=== PATIENT | female | born 1940 | race Caucasian/White ===

== ENCOUNTER 2022-07-22 10:24 | Day surgery (SDC) | payer MEDICARE, MEDICAID ==
[~2022-07-22] VITALS: Ht 160 cm; Wt 72.2 kg
[2022-07-22] VITALS (8 sets, daily range): BP systolic 130–157; BP diastolic 42–81
[2022-07-22] MEDS ORDERED: normal saline 1,000 ML IV SCH (10:55)
[2022-07-22] MEDS ORDERED: diphenhydrAMINE 25mg capsule PO PRN (10:55)
[2022-07-22] MEDS ORDERED: LORazepam 0.5 MG tablet PO PRN (10:55)
[2022-07-22] MEDS ORDERED: ATOR40TA72 PO (11:00)
[2022-07-22] MEDS ORDERED: MECL-226 PO (11:00)
[2022-07-22] MEDS ORDERED: CHOL200012 PO (11:00)
[2022-07-22] MEDS ORDERED: ASPI81TA52 PO (11:00)
[2022-07-22] MEDS ORDERED: VERA300C6 PO (11:00)
[2022-07-22] MEDS ORDERED: LEFL10TA20 PO (11:00)
[2022-07-22] MEDS ORDERED: LIDOcaine 1%/PF 5ML 10 MG/ML VIAL ONE (12:21)
[2022-07-22] MEDS ORDERED: fentaNYL/PF 50MCG/1 ML 2ML syringe ONE (12:21)
[2022-07-22] MEDS ORDERED: iohexol 350MG/ML 100ml bottle IV ONE (12:21)
[2022-07-22] MEDS ORDERED: nitroGLYCERIN-Tridil 50MG/D5W 250 ML IV ONE (12:21)
[2022-07-22] MEDS ORDERED: midazolam 1 mg/ML 2ml injection ONE (12:21)
[2022-07-22] MEDS ORDERED: verapamil 2.5 mg/ml inj IV ONE (12:21)
[2022-07-22] MEDS ORDERED: heparin 1,000unit/ml 10ml vial 10 ML ONE (12:21)
[2022-07-22] MEDS ORDERED: LIDOcaine 1% 30ml preserv. free vial ONE (14:06)
[2022-07-22 14:24] LABS: ISTAT HGB ART 11.9 g/dl (12.0-16.0); ISTAT Hct ART 35 %PCV (35-48); ISTAT O2 SATURATION ARTERIAL 88 % (95-98); ISTAT SOURCE ART
--- NOTE | 2022-07-22 14:50 | NUR ---
Patient back from laborer general. Bedside report received from [facility]. Procedure site to right groin stable. No signs of bleeding or hematoma. Pedal pulse intact. Vital signs stable.
[2022-07-22] MEDS ORDERED: HYDROcodone/acetaminophen 10/325mg tab PO PRN (15:05)
[2022-07-22] MEDS ORDERED: HYDROcodone/acetaminophen 5mg/325mg tablet PO PRN (15:05)
[2022-07-23 06:27] LABS: ISTAT Hct MIX 36 %PCV (35-48); ISTAT O2 SATURATION MIX VENOUS 64 % (60-80); ISTAT SOURCE VEN
== END 2022-07-22 16:50 | disposition home or self-care (01) ==
LOC: SSTAY O 10:24
PROVIDERS: ATTEND Student in an Organized Health Care Education/Training Program
DX: I25.10 Atherosclerotic heart disease of native coronary artery without angina pectoris (principal); I35.0 Nonrheumatic aortic (valve) stenosis; I10 Essential (primary) hypertension; Z86.73 Personal history of transient ischemic attack (TIA), and cerebral infarction without residual deficits; F41.9 Anxiety disorder, unspecified; M06.9 Rheumatoid arthritis, unspecified; Z79.899 Other long term (current) drug therapy; Z98.890 Other specified postprocedural states
CPT/HCPCS: 82803; 85014; 93005; 93456; 99152; C1760; C1769; C1894; J1644; J2250; J3010; J3490; J7030; Q0163; Q9967; 99153; A4620; A5120; A6258

== ENCOUNTER 2022-09-19 10:58 | Outpatient (CLI) | payer MEDICARE, MEDICAID ==
[~2022-09-19] VITALS: Ht 160 cm; Wt 70.3 kg
[~2022-09-19 10:58] MED LIST: ASPI81TA52 PO; ATOR40TA72 PO; CHOL200012 PO; LEFL10TA20 PO; MECL-226 PO; VERA300C6 PO
[2022-09-19 11:39] LABS: BASOPHILS # (AUTO) 0.1 X10'3 (0-0.2); BASOPHILS % (AUTO) 0.7 % (0-1); EOSINOPHILS # (AUTO) 0.4 X10'3 (0-0.9); EOSINOPHILS % (AUTO) 3.5 % (0-6); HEMATOCRIT 40.1 % (35.0-45.0); HEMOGLOBIN 13.3 g/dl (12.0-16.0); LYMPHOCYTES # (AUTO) 1.2 X10'3 (1.1-4.8); LYMPHOCYTES % (AUTO) 11.3 % (21-51); MEAN CORPUSCULAR HEMOGLOBIN 26.9 PG (27.0-31.0); MEAN CORPUSCULAR HGB CONC 33.2 g/dL (33.0-36.5); MEAN CORPUSCULAR VOLUME 81.1 FL (78-98); MEAN PLATELET VOLUME 8.1 FL (7.4-10.4); MONOCYTES # (AUTO) 1.3 X10'3 (0-0.9); MONOCYTES % (AUTO) 12.4 % (2-12); NEUTROPHILS # (AUTO) 7.6 X10'3 (1.8-7.7); NEUTROPHILS % (AUTO) 72.1 % (42-75); PLATELET COUNT 262 X10'3 (140-440); RED BLOOD COUNT 4.94 X10'6 (4.20-5.60); RED CELL DISTRIBUTION WIDTH 17.1 % (11.5-14.5); WHITE BLOOD COUNT 10.5 X10'3 (4.5-11.0)
[2022-09-19 11:48] LABS: APTT 28 SECONDS (22-32)
[2022-09-19 11:50] LABS: ALANINE AMINOTRANSFERASE 26 U/L (12-78); ALBUMIN 3.6 G/DL (3.4-5.0); ALBUMIN/GLOBULIN RATIO 0.9 (1.1-1.5); ALKALINE PHOSPHATASE 110 IU/L (46-116); ANION GAP 8 (8-16); ASPARTATE AMINO TRANSFERASE 30 U/L (10-37); BILIRUBIN,TOTAL 0.6 MG/DL (0.1-1.0); BLOOD UREA NITROGEN 9 MG/DL (7-18); BUN/CREATININE RATIO 12.7 (6.6-38.0); CALCIUM 9.4 MG/DL (8.5-10.1); CHLORIDE 103 MMOL/L (99-107); CREATININE 0.71 MG/DL (0.40-0.90); GLUCOSE 98 MG/DL (70-104); POTASSIUM 3.8 MMOL/L (3.5-5.1); SODIUM 141 MMOL/L (135-145); TOTAL CARBON DIOXIDE 29.9 MMOL/L (24-32); TOTAL PROTEIN 7.6 G/DL (6.4-8.2); eGFR 79 ML/MIN
[2022-09-19] MEDS ORDERED: IODIXANOL 320 MG/ML INFUS..BTL 100ML IV ONE (12:01)
[2022-09-19] MEDS ORDERED: metoprolol tartrate 1mg/ml inj IV ONE ×2 (12:29→12:45)
[2022-09-19] MEDS ORDERED: atropine 0.1mg/ml 10ml syringe ONE (12:30)
[2022-09-19 12:36] VITALS: BP 148/74
[2022-09-19 12:46] VITALS: BP 133/62
[2022-09-19 12:50] VITALS: BP 142/72
[2022-09-19] MEDS ORDERED: albuterol 2.5 MG/3 ML nebule NEB PRN (14:10)
== END 2022-09-19 23:59 | disposition home or self-care (01) ==
LOC: RAD 10:58
PROVIDERS: ATTEND Internal Medicine Cardiovascular Disease
DX: Z01.818 Encounter for other preprocedural examination (principal); J98.11 Atelectasis; R94.2 Abnormal results of pulmonary function studies; N63.10 Unspecified lump in the right breast, unspecified quadrant; K57.30 Diverticulosis of large intestine without perforation or abscess without bleeding; I25.10 Atherosclerotic heart disease of native coronary artery without angina pectoris; I70.0 Atherosclerosis of aorta; I51.7 Cardiomegaly; E04.1 Nontoxic single thyroid nodule; M47.815 Spondylosis without myelopathy or radiculopathy, thoracolumbar region; M19.012 Primary osteoarthritis, left shoulder; M19.011 Primary osteoarthritis, right shoulder; I65.29 Occlusion and stenosis of unspecified carotid artery; I35.0 Nonrheumatic aortic (valve) stenosis; Z20.822 Contact with and (suspected) exposure to COVID-19; Z79.82 Long term (current) use of aspirin; Z79.899 Other long term (current) drug therapy; Z90.49 Acquired absence of other specified parts of digestive tract
CPT/HCPCS: 36415; 71046; 71275; 74174; 80053; 85025; 85610; 85730; 87811; 94060; 94727; 94729; 94760; J3490; Q9967; J0461

== ENCOUNTER 2024-02-23 12:56 | Emergency (ER) | payer MEDICARE, MEDICAID ==
[~2024-02-23] VITALS: Ht 160 cm; Wt 62.0 kg
[~2024-02-23 12:56] MED LIST changes: +ARA20T PO; -MECL-226 PO; +MECL-302 PO
[2024-02-23 12:57] VITALS: TEMP 98.8
[2024-02-23 13:30] LABS: BASOPHILS # (AUTO) 0.1 X10'3 (0-0.2); BASOPHILS % (AUTO) 0.8 % (0-1); EOSINOPHILS # (AUTO) 0.3 X10'3 (0-0.9); EOSINOPHILS % (AUTO) 2.4 % (0-6); HEMATOCRIT 35.5 % (35.0-45.0); HEMOGLOBIN 11.5 g/dl (12.0-16.0); LYMPHOCYTES % (AUTO) 9.2 % (21-51); MEAN CORPUSCULAR HEMOGLOBIN 24.8 PG (27.0-31.0); MEAN CORPUSCULAR HGB CONC 32.3 g/dL (33.0-36.5); MEAN CORPUSCULAR VOLUME 76.8 FL (78-98); MEAN PLATELET VOLUME 7.6 FL (7.4-10.4); MONOCYTES # (AUTO) 1.1 X10'3 (0-0.9); MONOCYTES % (AUTO) 9.9 % (2-12); NEUTROPHILS # (AUTO) 8.4 X10'3 (1.8-7.7); NEUTROPHILS % (AUTO) 77.7 % (42-75); PLATELET COUNT 350 X10'3 (140-440); RED BLOOD COUNT 4.62 X10'6 (4.20-5.60); RED CELL DISTRIBUTION WIDTH 17.3 % (11.5-14.5); WHITE BLOOD COUNT 10.9 X10'3 (4.5-11.0)
[2024-02-23 13:45] LABS: ALBUMIN 3.1 G/DL (3.4-5.0); ANION GAP 10 (8-16); BLOOD UREA NITROGEN 11 MG/DL (7-18); BUN/CREATININE RATIO 13.3 (10.0-20.0); CALCIUM 8.4 MG/DL (8.5-10.1); CHLORIDE 102 MMOL/L (99-107); CREATININE 0.83 MG/DL (0.40-0.90); GLUCOSE 265 MG/DL (70-104); POTASSIUM 3.4 MMOL/L (3.5-5.1); PRO BRAIN NATRIURETIC PEPTIDE 330 PG/ML (0-450); SODIUM 139 MMOL/L (135-145); TOTAL CARBON DIOXIDE 26.9 MMOL/L (24-32); eCRCL 42 ML/MIN; eGFR 66 ML/MIN
[2024-02-23 14:00] VITALS: BP 120/50; PULSE 103; RESP 18; O2SAT 98
== END 2024-02-23 16:37 | disposition home or self-care (01) ==
LOC: ER 12:56
DX: R07.9 Chest pain, unspecified (principal); R07.89 Other chest pain
CPT/HCPCS: 36415; 71045; 80048; 83880; 84484; 85025; 93005; 99285